=== PATIENT | female | born 1960 | race Caucasian/White ===

== ENCOUNTER 2025-09-11 08:54 | Outpatient (CLI) | payer MEDICARE, OTHER, SELFPAY ==
--- NOTE | 2025-09-11 08:56 | US_ITS ---
FINAL REPORT TECHNIQUE: Sonographic images of the right upper quadrant were obtained. CLINICAL HISTORY: RUQ PAIN FINDINGS: PANCREAS: Unremarkable. LIVER: Homogeneous. No focal hepatic lesion. No intrahepatic biliary ductal dilatation. The portal vein is normal with normal directional flow. GALLBLADDER: No gallstones. There is a very small echogenic focus in the dependent gallbladder without evidence of shadowing, could represent a polyp. No gallbladder wall thickening or pericholecystic fluid. COMMON DUCT: 4 mm. Normal for age. RIGHT KIDNEY: Incompletely evaluated. FREE FLUID: None. IMPRESSION: Very small echogenic focus in the gallbladder, could represent a polyp. Reviewed, Interpreted and Dictated by Liz Wesley MD Transcribed by Thuy Rodríguez Authenticated and [facility][1]
--- OUTSIDE RECORDS SUMMARY | 2025-09-11 08:58 | XMS_ITS | Data Portability ---
Author Organization [employer] [facility] - [facility] Address [address] [place] [address] Assessment No assessment recorded. Plan of Treatment Reminders Order Date Submit Date Provider Last Modified By Organization Details Last Modified Time Details Appointments FOLLOW UP 2025 08:00A Anat Lund PA-C Not available Not available Not available FOLLOW UP 2025 08:30A Anat Lund PA-C Not available Not available Not available Lab CBC w/ auto diff 2024 025 [facility] [address] [place], [address], 03/27/2025 08:10:35 CMP, serum or plasma 2024 025 [facility]), [address] [place], [address], 03/27/2025 08:10:36 lipid panel, serum 2024 025 [facility]), [address] [place], [address], 03/27/2025 08:10:37 vitamin D, 25-hydrox y, total, serum 2024 025 [facility]), [address] [place], [address], 03/27/2025 08:10:39 TSH + free T4, serum 2024 025 [facility] [address] [place], [address], 03/27/2025 08:10:35 ferritin, serum or plasma 2024 025 [facility] [address] [place], [address], 03/27/2025 08:10:39 iron + total iron-bind ing capacity (TIBC), serum 2024 025 [facility] [address] [place], [address], 03/27/2025 08:10:37 HbA1c (hemoglob in A1c), blood 2024 025 [facility] ([facility]), [address] [place], [address], 03/27/2025 08:10:38 cobalamin and folate panel, serum 2024 025 [facility] ([facility]), [address] [place], [address], 03/27/2025 08:10:38 CBC w/ auto diff 2023 024 [facility] ([facility]), [address] [place], [address], 06/22/2024 10:09:44 CMP, serum or plasma 2023 024 [facility] [address] [place], [address], 06/22/2024 10:09:45 iron + TIBC + ferritin, serum 2023 024 [facility] [address] [place], [address], 06/22/2024 10:09:43 lipid panel, serum 2023 024 [facility] ([facility]), [address] [facility], [place], [address], 06/22/2024 10:09:45 Referral obstetric jp and gynecolog ist referral 2024 025 VETO Henning DO, [address], [address], [place], [address], 11/12/2024 14:14:19 Procedures None recorded. Surgeries None recorded. Imaging US, abdomen, limited - RUQ [address] -New Scheduling, [address], [place], [address], 09/09/2025 08:33:54 MAMMO, screening , digital, bilateral - SAME DAY THE DEXA SCAN 2024 025 [facility], [address], [place], [address], 12/04/2024 10:28:42 DEXA, axial skeleton + vertebral fracture assessmen t - SAME DAY THE MAMMOGRAM 2024 025 [facility], [address], [place], [address], 11/21/2024 08:18:18 Medication Orders ondansetr on 8 mg disintegr ating tablet 2024 025 [id number], [address], [place], [id number], 09/03/2025 10:09:48 dicyclomi ne 20 mg tablet 2024 025 [facility][id number], [address] [place], [id number], 09/03/2025 10:10:08 triamcino lone acetonide 0.1 % topical cream [facility], [address] , [place], [place], [id number], 05/21/2025 14:57:46 Horizant ER 600 mg tablet,ex tended release 2024 025 [facility], [address] [place] [address], [place], [address], 09/03/2025 09:42:26 ropinirol e 1 mg tablet 2023 024 [facility], [address] [place] [address], [place], [address], 06/21/2024 12:19:19 Crestor 5 mg tablet 2023 024 [facility], [address] [place] [address], [place], [address], 06/21/2024 12:18:46 Patient TargetsNo targets recorded. Patient Instructions Encounter Date Encounter Id Patient Instructions Last Modified By Organization Details Last Modified Time 06/21/2024 [id number] tetanus and diphtheria booster: care instructions Not available 06/21/2024 11:17:32 high cholesterol : care instructions [email or web address] Not available 06/21/2024 11:17:32 bradycardia: car e instructions [email or web address] Not available 06/21/2024 11:27:36 09/27/2024 [id number] restless legs syndrome: care instructions [id number] Not available 09/27/2024 16:55:36 mammogram: about this test [email or web address] Not available 09/27/2024 17:00:08 learning about healthy weight [email or web address] Not available 09/27/2024 17:00:08 03/26/2025 [id number] restless legs syndrome: care instructions [id number] Not available 03/26/2025 13:35:02 high cholesterol : care instructions Not available 03/26/2025 13:35:02 bradycardia: car e instructions [email or web address] Not available 03/26/2025 13:35:02 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) [address] [place], [address], 06/22/2024 10:09:43 06/21/2006/22/2024 FE+TI BC+FE R UIBC 216 ug/dL 118-36 9 normal Not Available [facility] ([facility]) [address] [place], [address], 06/22/2024 10:09:43 06/21/2006/22/2024 FE+TI BC+FE R iron 74 ug/dL 27-139 normal Not Available [facility] ([facility]) [address] [place], [address], 06/22/2024 10:09:43 06/21/2006/22/2024 FE+TI BC+FE R iron saturation 26 % 15-55 normal Not Available [facility] ([facility]) [address] [place], [address], 06/22/2024 10:09:43 06/21/2006/22/2024 FE+TI BC+FE R ferritin 78 NG/mL 15-150 normal Not Available [facility] ([facility]) [address] [place], [address], 06/22/2024 10:09:43 06/21/2006/22/2024 CBC WITH DIFFE RENTI AL/PL ATELE T WBC 5.7 x10e3 /uL 3.4-10 .8 normal Not Available [facility] ([facility]) [address] [place], [address], 06/22/2024 10:09:44 06/21/2006/22/2024 CBC WITH DIFFE RENTI AL/PL ATELE T RBC 4.23 x10e6 /uL 3.77-5 .28 normal Not Available [facility] ([facility]) [address] [place], [address], 06/22/2024 10:09:44 06/21/2006/22/2024 CBC WITH DIFFE RENTI AL/PL ATELE T hemoglobin 13.9 g/dL 11.1-1 5.9 normal Not Available [facility] ([facility]) [address] [place], [address], 06/22/2024 10:09:44 06/21/2006/22/2024 CBC WITH DIFFE RENTI AL/PL ATELE T hematocrit 42.1 % 34.0-4 6.6 normal Not Available [facility] ([facility]) [address] [place], [address], 06/22/2024 10:09:44 06/21/2006/22/2024 CBC WITH DIFFE RENTI AL/PL ATELE T MCV 100 fL 79-97 above high normal Not Available [facility] ([facility]) [address] [place], [address], 06/22/2024 10:09:44 06/21/2006/22/2024 CBC WITH DIFFE RENTI AL/PL ATELE T MCH 32.9 pg 26.6-3 3.0 normal Not Available [facility] ([facility]) [address] [place], [address], 06/22/2024 10:09:44 06/21/2006/22/2024 CBC WITH DIFFE RENTI AL/PL ATELE T MCHC 33.0 g/dL 31.5-3 5.7 normal Not Available [facility] ([facility]) [address] [place], [address], 06/22/2024 10:09:44 06/21/20 24 06/22/2024 CBC WITH DIFFE RENTI AL/PL ATELE T RDW 12.5 % 11.7-1 5.4 Not Available [facility] ([facility]) [address] [facility], [place], [address], 06/22/2024 10:09:44 06/21/2006/22/2024 CBC WITH DIFFE RENTI AL/PL ATELE T platelets 330 x10e3 /uL 150-45 0 normal Not Available [facility] ([facility]) [address] [facility], [place], [address], 06/22/2024 10:09:44 06/21/2006/22/2024 CBC WITH DIFFE RENTI AL/PL ATELE T neutrophils 56 % not estab. normal Not Available [facility] ([facility]) [address] [facility], [place], [address], 06/22/2024 10:09:44 06/21/2006/22/2024 CBC WITH DIFFE RENTI AL/PL ATELE T lymphs 34 % not estab. normal Not Available [facility] ([facility]) [address] [facility], [place], [address], 06/22/2024 10:09:44 06/21/2006/22/2024 CBC WITH DIFFE RENTI AL/PL ATELE T monocytes 8 % not estab. normal Not Available [facility] ([facility]) [address] [facility], [place], [address], 06/22/2024 10:09:44 06/21/2006/22/2024 CBC WITH DIFFE RENTI AL/PL ATELE T eos 1 % not estab. normal Not Available [facility] ([facility]) [address] [facility], [place], [address], 06/22/2024 10:09:44 06/21/2006/22/2024 CBC WITH DIFFE RENTI AL/PL ATELE T basos 1 % not estab. normal Not Available [facility] ([facility]) [address] [facility], [place], [address], 06/22/2024 10:09:44 06/21/2006/22/2024 CBC WITH DIFFE RENTI AL/PL ATELE T immature cells TOMB MAKER HELPER Not Available [facility] ([facility]) [address] [facility], [place], [address], 06/22/2024 10:09:44 06/21/2006/22/2024 CBC WITH DIFFE RENTI AL/PL ATELE T neutrophils (absolute) 3.1 x10e3 /uL 1.4-7. 0 normal Not Available [facility] ([facility]) [address] [facility], [place], [address], 06/22/2024 10:09:44 06/21/2006/22/2024 CBC WITH DIFFE RENTI AL/PL ATELE T lymphs (absolute) 2.0 x10e3 /uL 0.7-3. 1 normal Not Available [facility] ([facility]) [address] [place], [address], 06/22/2024 10:09:44 06/21/2006/22/2024 CBC WITH DIFFE RENTI AL/PL ATELE T monocytes(ab solute) 0.5 x10e3 /uL 0.1-0. 9 normal Not Available [facility] ([facility]) [address] [place], [address], 06/22/2024 10:09:44 06/21/2006/22/2024 CBC WITH DIFFE RENTI AL/PL ATELE T eos (absolute) 0.1 x10e3 /uL 0.0-0. 4 normal Not Available [facility] ([facility]) [address] [place], [address], 06/22/2024 10:09:44 06/21/20 24 06/22/2024 CBC WITH DIFFE RENTI AL/PL ATELE T baso (absolute) 0.1 x10e3 /uL 0.0-0. 2 normal Not Available [facility] ([facility]) [address] [facility], [place], [address], 06/22/2024 10:09:44 06/21/2006/22/2024 CBC WITH DIFFE RENTI AL/PL ATELE T immature granulocytes 0 % not estab. Not Available [facility] ([facility]) [address] [facility], [place], [address], 06/22/2024 10:09:44 06/21/2006/22/2024 CBC WITH DIFFE RENTI AL/PL ATELE T immature grans (abs) 0.0 x10e3 /uL 0.0-0. 1 Not Available [facility] ([facility]) [address] [facility], [place], [address], 06/22/2024 10:09:44 06/21/2006/22/2024 CBC WITH DIFFE RENTI AL/PL ATELE T NRBC TOMB MAKER HELPER Not Available [facility] ([facility]) [address] [facility], [place], [address], 06/22/2024 10:09:44 06/21/2006/22/2024 CBC WITH DIFFE RENTI AL/PL ATELE T hematology comments: TOMB MAKER HELPER Not Available [facility] ([facility]) [address] [facility], [place], [address], 06/22/2024 10:09:44 06/21/2006/22/2024 COMP. METAB OLIC PANEL (14) glucose 90 mg/dL 70-99 normal Not Available [facility] ([facility]) [address] [facility], [place], [address], 06/22/2024 10:09:45 06/21/2006/22/2024 COMP. METAB OLIC PANEL (14) BUN 17 mg/dL 8-27 normal Not Available [facility] ([facility]) [address] [facility] [place], [address], 06/22/2024 10:09:45 06/21/20 24 06/22/2024 COMP. METAB OLIC PANEL (14) creatinine 0.71 mg/dL 0.57-1 .00 normal Not Available [facility] ([facility]) [address] [facility] [place], [address], 06/22/2024 10:09:45 06/21/20 24 06/22/2024 COMP. METAB OLIC PANEL (14) eGFR 94 mL/mi n/1.7 3 >59 normal Not Available [facility] ([facility]) [address] [facility], [place], [address], 06/22/2024 10:09:45 06/21/20 24 06/22/2024 COMP. METAB OLIC PANEL (14) BUN/creatini ne ratio 24 12-28 normal Not Available [facility] ([facility]) [address] [facility] [place], [address], 06/22/2024 10:09:45 06/21/20 24 06/22/2024 COMP. METAB OLIC PANEL (14) sodium 139 mmol/ L 134-14 4 normal Not Available [facility] ([facility]) [address] [facility] [place], [address], 06/22/2024 10:09:45 06/21/20 24 06/22/2024 COMP. METAB OLIC PANEL (14) potassium 4.7 mmol/ L 3.5-5. 2 normal Not Available [facility] ([facility]) [address] [facility] [place], [address], 06/22/2024 10:09:45 06/21/20 24 06/22/2024 COMP. METAB OLIC PANEL (14) chloride 101 mmol/ L 96-106 normal Not Available [facility] ([facility]) [address], [place], [address], 06/22/2024 10:09:45 06/21/2006/22/2024 COMP. METAB OLIC PANEL (14) carbon dioxide, total 23 mmol/ L 20-29 normal Not Available [facility] ([facility]) [address], [place], [address], 06/22/2024 10:09:45 06/21/20 24 06/22/2024 COMP. METAB OLIC PANEL (14) calcium 9.4 mg/dL 8.7-10 .3 normal Not Available [facility] ([facility]) [address] [place], [address], 06/22/2024 10:09:45 06/21/20 24 06/22/2024 COMP. METAB OLIC PANEL (14) protein, total 7.3 g/dL 6.0-8. 5 normal Not Available [facility] ([facility]) [address], [place], [address], 06/22/2024 10:09:45 06/21/2006/22/2024 COMP. METAB OLIC PANEL (14) albumin 4.7 g/dL 3.9-4. 9 normal Not Available [facility] ([facility]) [address] [place], [address], 06/22/2024 10:09:45 06/21/2006/22/2024 COMP. METAB OLIC PANEL (14) globulin, total 2.6 g/dL 1.5-4. 5 Not Available [facility] ([facility] [address] [facility] [place], [address], 06/22/2024 10:09:45 06/21/20 24 06/22/2024 COMP. METAB OLIC PANEL (14) bilirubin, total 0.3 mg/dL 0.0-1. 2 normal Not Available [facility] ([facility]) [address] [facility], [place], [address], 06/22/2024 10:09:45 06/21/2006/22/2024 COMP. METAB OLIC PANEL (14) alkaline phosphatase 78 IU/L 44-121 normal Not Available [facility] ([facility]) [address] [facility] [place], [address], 06/22/2024 10:09:45 06/21/20 24 06/22/2024 COMP. METAB OLIC PANEL (14) AST (SGOT) 17 IU/L 0-40 normal Not Available [facility] ([facility]) [address] [facility] [place], [address], 06/22/2024 10:09:45 06/21/20 24 06/22/2024 COMP. METAB OLIC PANEL (14) ALT (SGPT) 17 IU/L 0-32 normal Not Available [facility] ([facility]) [address] [facility], [place], [address], 06/22/2024 10:09:45 06/21/20 24 06/22/2024 LIPID PANEL cholesterol, total 183 mg/dL 100-19 9 normal Not Available [facility] ([facility]) [address] [facility], [place], [address], 06/22/2024 10:09:45 06/21/2006/22/2024 LIPID PANEL triglyceride s 60 mg/dL 0-149 normal Not Available [facility] ([facility]) [address] [facility] [place], [address], 06/22/2024 10:09:45 06/21/2006/22/2024 LIPID PANEL HDL cholesterol 88 mg/dL >39 normal Not Available [facility]) [address] [facility] [place], [address], 06/22/2024 10:09:45 06/21/20 24 06/22/2024 LIPID PANEL VLDL cholesterol val 11 mg/dL 5-40 Not Available [facility] ([facility]) [address] [facility] [place], [address], 06/22/2024 10:09:45 06/21/20 24 06/22/2024 LIPID PANEL LDL chol calc ([facility]) 84 mg/dL 0-99 Not Available [facility] ([facility]) [address] [facility] [place], [address], 06/22/2024 10:09:45 06/21/20 24 06/22/2024 LIPID PANEL LDL calc comment: TOMB MAKER HELPER Not Available [facility] ([facility]) [address] [facility] [place], [address], 06/22/2024 10:09:45 06/21/2006/22/2024 DICK E NOTE please note COMMEN T The date and/o r time of colle ction was not indic ated on the requi sitio n as requi red by state and justo al law. The date of recei pt of the speci men was used as the colle ction date if not suppl ied. Not Available [facility] ([facility]) [address] [facility], [place], [address], 06/22/2024 10:09:46 03/26/2003/27/2025 TSH+F REE T4 TSH 2.090 uIU/m L 0.450- 4.500 normal Not Available [facility] ([facility]) [address] [place], [address], 03/27/2025 08:10:35 03/26/2003/27/2025 TSH+F REE T4 T4,free(dire ct) 1.21 NG/dL 0.82-1 .77 normal Not Available [facility] ([facility]) [address] [place], [address], 03/27/2025 08:10:35 03/26/2003/27/2025 CBC WITH DIFFE RENTI AL/PL ATELE T WBC 5.0 x10e3 /uL 3.4-10 .8 normal Not Available [facility] ([facility]) [address] [place], [address], 03/27/2025 08:10:35 03/26/2003/27/2025 CBC WITH DIFFE RENTI AL/PL ATELE T RBC 4.34 x10e6 /uL 3.77-5 .28 normal Not Available [facility] ([facility]) [address] [place], [address], 03/27/2025 08:10:35 03/26/2003/27/2025 CBC WITH DIFFE RENTI AL/PL ATELE T hemoglobin 13.6 g/dL 11.1-1 5.9 normal Not Available [facility] ([facility]) [address] [place], [address], 03/27/2025 08:10:35 03/26/2003/27/2025 CBC WITH DIFFE RENTI AL/PL ATELE T hematocrit 44.1 % 34.0-4 6.6 normal Not Available [facility] ([facility]) [address] [place], [address], 03/27/2025 08:10:35 03/26/2003/27/2025 CBC WITH DIFFE RENTI AL/PL ATELE T MCV 102 fL 79-97 above high normal Not Available [facility] ([facility]) [address] [place], [address], 03/27/2025 08:10:35 03/26/2003/27/2025 CBC WITH DIFFE RENTI AL/PL ATELE T MCH 31.3 pg 26.6-3 3.0 normal Not Available [facility] ([facility]) [address] [place], [address], 03/27/2025 08:10:35 03/26/2003/27/2025 CBC WITH DIFFE RENTI AL/PL ATELE T MCHC 30.8 g/dL 31.5-3 5.7 below low normal Not Available [facility] ([facility]) [address] [facility], [place], [address], 03/27/2025 08:10:35 03/26/20 25 03/27/2025 CBC WITH DIFFE RENTI AL/PL ATELE T RDW 12.2 % 11.7-1 5.4 Not Available [facility] ([facility]) [address] [facility], [place], [address], 03/27/2025 08:10:35 03/26/2003/27/2025 CBC WITH DIFFE RENTI AL/PL ATELE T platelets 323 x10e3 /uL 150-45 0 normal Not Available [facility] ([facility]) [address] [facility], [place], [address], 03/27/2025 08:10:35 03/26/20 25 03/27/2025 CBC WITH DIFFE RENTI AL/PL ATELE T neutrophils 50 % not estab. normal Not Available [facility] ([facility]) [address] [facility], [place], [address], 03/27/2025 08:10:35 03/26/20 25 03/27/2025 CBC WITH DIFFE RENTI AL/PL ATELE T lymphs 40 % not estab. normal Not Available [facility] ([facility]) [address] [facility], [place], [address], 03/27/2025 08:10:35 03/26/20 25 03/27/2025 CBC WITH DIFFE RENTI AL/PL ATELE T monocytes 7 % not estab. normal Not Available [facility] ([facility]) [address] [facility], [place], [address], 03/27/2025 08:10:35 03/26/20 25 03/27/2025 CBC WITH DIFFE RENTI AL/PL ATELE T eos 2 % not estab. normal Not Available [facility] ([facility]) [address] [facility], [place], [address], 03/27/2025 08:10:35 03/26/20 25 03/27/2025 CBC WITH DIFFE RENTI AL/PL ATELE T basos 1 % not estab. normal Not Available [facility] ([facility]) [address] [facility], [place], [address], 03/27/2025 08:10:35 03/26/20 25 03/27/2025 CBC WITH DIFFE RENTI AL/PL ATELE T immature cells TOMB MAKER HELPER Not Available [facility] ([facility]) [address] [facility], [place], [address], 03/27/2025 08:10:35 03/26/20 25 03/27/2025 CBC WITH DIFFE RENTI AL/PL ATELE T neutrophils (absolute) 2.5 x10e3 /uL 1.4-7. 0 normal Not Available [facility] ([facility]) [address] [place], [address], 03/27/2025 08:10:35 03/26/20 25 03/27/2025 CBC WITH DIFFE RENTI AL/PL ATELE T lymphs (absolute) 2.0 x10e3 /uL 0.7-3. 1 normal Not Available [facility] ([facility]) [address] [place], [address], 03/27/2025 08:10:35 03/26/20 25 03/27/2025 CBC WITH DIFFE RENTI AL/PL ATELE T monocytes(ab solute) 0.4 x10e3 /uL 0.1-0. 9 normal Not Available [facility] ([facility]) [address] [place], [address], 03/27/2025 08:10:35 03/26/20 25 03/27/2025 CBC WITH DIFFE RENTI AL/PL ATELE T eos (absolute) 0.1 x10e3 /uL 0.0-0. 4 normal Not Available [facility] ([facility]) [address] [facility], [place], [address], 03/27/2025 08:10:35 03/26/20 25 03/27/2025 CBC WITH DIFFE RENTI AL/PL ATELE T baso (absolute) 0.1 x10e3 /uL 0.0-0. 2 normal Not Available [facility] ([facility]) [address] [facility], [place], [address], 03/27/2025 08:10:35 03/26/2003/27/2025 CBC WITH DIFFE RENTI AL/PL ATELE T immature granulocytes 0 % not estab. Not Available [facility] ([facility]) [address] [place], [address], 03/27/2025 08:10:35 03/26/20 25 03/27/2025 CBC WITH DIFFE RENTI AL/PL ATELE T immature grans (abs) 0.0 x10e3 /uL 0.0-0. 1 Not Available [facility] ([facility]) [address] [place], [address], 03/27/2025 08:10:35 03/26/20 25 03/27/2025 CBC WITH DIFFE RENTI AL/PL ATELE T NRBC TOMB MAKER HELPER Not Available [facility] ([facility]) [address] [place], [address], 03/27/2025 08:10:35 03/26/20 25 03/27/2025 CBC WITH DIFFE RENTI AL/PL ATELE T hematology comments: TOMB MAKER HELPER Not Available [facility] ([facility]) [address] [place], [address], 03/27/2025 08:10:35 03/26/20 25 03/27/2025 COMP. METAB OLIC PANEL (14) glucose 100 mg/dL 70-99 above high normal Not Available [facility] ([facility]) [address] [place], [address], 03/27/2025 08:10:36 03/26/20 25 03/27/2025 COMP. METAB OLIC PANEL (14) BUN 15 mg/dL 8-27 normal Not Available [facility] ([facility]) [address] [place], [address], 03/27/2025 08:10:36 03/26/20 25 03/27/2025 COMP. METAB OLIC PANEL (14) creatinine 0.65 mg/dL 0.57-1 .00 normal Not Available [facility] ([facility]) [address] [place], [address], 03/27/2025 08:10:36 03/26/20 25 03/27/2025 COMP. METAB OLIC PANEL (14) eGFR 97 mL/mi n/1.7 3 >59 normal Not Available [facility] ([facility]) [address] [place], [address], 03/27/2025 08:10:36 03/26/20 25 03/27/2025 COMP. METAB OLIC PANEL (14) BUN/creatini ne ratio 23 12-28 normal Not Available [facility] ([facility]) [address] [place], [address], 03/27/2025 08:10:36 03/26/20 25 03/27/2025 COMP. METAB OLIC PANEL (14) sodium 141 mmol/ L 134-14 4 normal Not Available [facility] ([facility]) [address] [place], [address], 03/27/2025 08:10:36 03/26/20 25 03/27/2025 COMP. METAB OLIC PANEL (14) potassium 4.9 mmol/ L 3.5-5. 2 normal Not Available [facility] ([facility]) [address] [facility] [place], [address], 03/27/2025 08:10:36 03/26/20 25 03/27/2025 COMP. METAB OLIC PANEL (14) chloride 105 mmol/ L 96-106 normal Not Available [facility] ([facility]) [address] [place], [address], 03/27/2025 08:10:36 03/26/20 25 03/27/2025 COMP. METAB OLIC PANEL (14) carbon dioxide, total 19 mmol/ L 20-29 below low normal Not Available [facility] ([facility]) [address] [place], [address], 03/27/2025 08:10:36 03/26/20 25 03/27/2025 COMP. METAB OLIC PANEL (14) calcium 9.6 mg/dL 8.7-10 .3 normal Not Available [facility] ([facility]) [address] [place], [address], 03/27/2025 08:10:36 03/26/20 25 03/27/2025 COMP. METAB OLIC PANEL (14) protein, total 7.3 g/dL 6.0-8. 5 normal Not Available [facility] ([facility]) [address] [place], [address], 03/27/2025 08:10:36 03/26/20 25 03/27/2025 COMP. METAB OLIC PANEL (14) albumin 4.6 g/dL 3.9-4. 9 normal Not Available [facility] ([facility]) [address] [place], [address], 03/27/2025 08:10:36 03/26/20 25 03/27/2025 COMP. METAB OLIC PANEL (14) globulin, total 2.7 g/dL 1.5-4. 5 Not Available [facility] ([facility]) [address] [place], [address], 03/27/2025 08:10:36 03/26/20 25 03/27/2025 COMP. METAB OLIC PANEL (14) bilirubin, total 0.4 mg/dL 0.0-1. 2 normal Not Available [facility] ([facility]) [address] [facility] [place], [address], 03/27/2025 08:10:36 03/26/20 25 03/27/2025 COMP. METAB OLIC PANEL (14) alkaline phosphatase 58 IU/L 44-121 normal Not Available [facility] ([facility]) [address] [facility] [place], [address], 03/27/2025 08:10:36 03/26/20 25 03/27/2025 COMP. METAB OLIC PANEL (14) AST (SGOT) 19 IU/L 0-40 normal Not Available [facility] ([facility]) [address] [place], [address], 03/27/2025 08:10:36 03/26/20 25 03/27/2025 COMP. METAB OLIC PANEL (14) ALT (SGPT) 22 IU/L 0-32 normal Not Available [facility] ([facility]) [address] [place], [address], 03/27/2025 08:10:36 03/26/20 25 03/27/2025 LIPID PANEL cholesterol, total 160 mg/dL 100-19 9 normal Not Available [facility] ([facility]) [address] [place], [address], 03/27/2025 08:10:37 03/26/20 25 03/27/2025 LIPID PANEL triglyceride s 58 mg/dL 0-149 normal Not Available [facility] ([facility]) [address] [place], [address], 03/27/2025 08:10:37 03/26/20 25 03/27/2025 LIPID PANEL HDL cholesterol 75 mg/dL >39 normal Not Available [facility] ([facility]) [address] [place], [address], 03/27/2025 08:10:37 03/26/20 25 03/27/2025 LIPID PANEL VLDL cholesterol val 12 mg/dL 5-40 Not Available [facility] ([facility]) [address] [place], [address], 03/27/2025 08:10:37 03/26/20 25 03/27/2025 LIPID PANEL LDL chol calc ([facility]) 73 mg/dL 0-99 Not Available [facility] ([facility]) [address] [place], [address], 03/27/2025 08:10:37 03/26/20 25 03/27/2025 LIPID PANEL LDL calc comment: TOMB [employer] Not Available [facility] ([facility]) [address] [facility], [place], [address], 03/27/2025 08:10:37 03/26/20 25 03/27/2025 IRON AND TIBC iron bind.cap.(TI BC) 268 ug/dL 250-45 0 normal Not Available [facility] ([facility]) [address] [facility], [place], [address], 03/27/2025 08:10:37 03/26/20 25 03/27/2025 IRON AND TIBC UIBC 186 ug/dL 118-36 9 normal Not Available [facility] ([facility]) [address] [place], [address], 03/27/2025 08:10:37 03/26/20 25 03/27/2025 IRON AND TIBC iron 82 ug/dL 27-139 normal Not Available [facility] ([facility]) [address] [place], [address], 03/27/2025 08:10:37 03/26/20 25 03/27/2025 IRON AND TIBC iron saturation 31 % 15-55 normal Not Available [facility] ([facility]) [address] [facility], [place], [address], 03/27/2025 08:10:37 03/26/2003/27/2025 VITAM IN B12 AND FOLAT E vitamin B12 401 pg/mL 232-12 45 normal Not Available [facility] ([facility]) [address] [facility], [place], [address], 03/27/2025 08:10:38 03/26/2003/27/2025 VITAM IN B12 AND FOLAT E folate (folic acid), serum 12.6 NG/mL >3.0 normal A serum folat e ismael ntrat ion of less than 3.1 ng/mL is consi dered to repre sent clini val defic iency . Not Available [facility] ([facility]) [address] [facility], [place], [address], 03/27/2025 08:10:38 03/26/2003/27/2025 HEMOG LOBIN A1C hemoglobin A1C 5.9 % 4.8-5. 6 above high normal Predi abete s: 5.7 - 6.4 Diabe emily: >6.4 Glyce chuck contr ol for adult s with diabe emily: <7.0 Not Available [facility] ([facility]) [address] [place], [address], 03/27/2025 08:10:38 03/26/2003/27/2025 VITAM IN D, 25-HY DROXY vitamin D, 25-hydroxy 43.9 NG/mL 30.0-1 00.0 Vitam in D defic iency has been defin ed by the Insti tute of Medic ine and an Endoc rine Socie ty pract ice guide line as a level of serum 25-OH vitam in D less than 20 ng/mL (1,2) . The Endoc rine Socie ty went on to furth er defin e vitam in D insuf ficie ncy as a level betwe en and 29 ng/mL (2). 1. IOM (Inst itute of Medic ine). 2010. Dieta ry refer ence kirk es for calci um and D. Kait [place]: The [facility] . 2. Holic k MF, Binkl ey [place], Bisch off-F errar i BAIRD, et al. Evalu ation , treat ment, and preve ntion of vitam in D defic iency : an Endoc rine Socie ty clini val pract ice guide line. JCEM. 2010; 96(7) :1911 -30. Not Available [facility] ([facility]) [address] [facility], [place], [address], 03/27/2025 08:10:39 03/26/20 25 03/27/2025 GENO TIN ferritin 105 NG/mL 15-150 normal Not Available [facility] ([facility]) [address] [facility], [place], [address], 03/27/2025 08:10:39 11/22/19 25 11/20/2024 DEXA, axial skele ton + verte bral fract ure asses sment No observ ation record ed. [email or web address] [facility] (Radiology) [address] [place] [address] , [place], [address], 11/22/2024 09:53:07 12/05/19 25 11/20/2024 MAMMO , scree patricio, digit al, bilat eral No observ ation record ed. [facility] (Radiology) [address] , [place], [address], 12/04/2024 12:01:59 Result Notes None recorded. Problems Name Problem SNOMED Code Status Onset Date Resolution Date Notes Provider Name and Address Organization Details Recorded Time Restless legs syndrome 54037470 Active 2023 GISSELLE Ferrell [address] [place] [address], [phone], [facility] [employer] 4 11:12:57 Hyperlipidemia 83423238 Active 2023 Génesis GISSELLE Lund [address] [place] [address], [address], [employer] 4 13:34:28 Bradycardia 14105226 Active 2023 Génesis Lund GISSELLE [address] [place] [address], [address] 8, [employer] 4 13:34:21 Osteopenia 937236638 Active 2024 GISSELLE Ferrell [address] [place] [address], [address] 8, [employer] 5 13:33:27 Chronic low back pain 509265621 Active 2024 GISSELLE Ferrell [address] [place] [address], [address] 8, [employer] 5 08:45:35 Generalized osteoarthritis 482762847 Active 2024 GISSELLE Ferrell [address] [place] [address], [address] 8, [employer] 5 08:45:53 Nummular eczema 20578777 Active 2024 GISSELLE Ferrell [address] [place] [address], [address] 8, [employer] 5 14:56:59 Gastroesophage al reflux disease without esophagitis 799076498 Active 2024 GISSELLE Ferrell [address] [place] [address], [address] 8, [employer] 5 10:11:13 Right upper quadrant pain 872266386 Active 2024 GISSELLE Ferrell [address] [place] [address], [address] 8, [employer] 5 10:07:38 Problem Notes None recorded. Procedures Surgical History Date Name Laterality Status Provider Name and Address Organization Details Recorded Time 11/21/19 Most Recent Mammogram completed [facility] [employer] 03/12/2025 17:19:46 11/05/19 25 Date of Last Pap Smear completed [employer] 11/12/2024 16:36:18 06/29/20 22 Back Surgery completed [employer] 06/21/2024 10:48:24 11/12/18 64 Tonsillectomy completed [employer] 06/21/2024 10:48:24 Imaging Results None recorded. Procedure Notes None recorded. Medical Equipment None Reported. Allergies Allergen ID Allergen Name Allergen Category Reaction Reaction Severity Criticality Documentation Date Start Date Code Code System Note Provider Name and Address Organization Details Recorded Time 08972 Substance with sulfonami de structure and antibacte rial mechanism of action (substanc e) medicatio n rash moderate Not available 06/21/2024 08110 8003 SNOMED [employer]. 4 10:48:22 21856 shrimp allergeni c extract food nausea moderate Not available 06/21/20242022 09692 2 [employer] 4 10:48:22 46048 scallop allergeni c extract food nausea moderate Not available 06/21/2024 54824 6 [employer]. 4 10:48:22 Medications Name Sig Start Date Stop Date Status Note LastModified by Organization Details LastModified Time doxycycline hyclate 100 mg capsule 09/27 completed Not Available Not Available Not Available ropinirole 1 mg tablet Take 1.5 tablets every day by oral route at bedtime for 90 days, for RLS. 2024 active Not Available Not Available Not Avai lable valacyclovi r 500 mg tablet 1 tablet every day by oral route. active Not Available Not Available No t Available omeprazole 40 mg capsule,del ayed release Take 1 capsule every day by oral route for 90 days. 08/26 completed Not Available Not Available Not Available aspirin 81 mg tablet,petra yed release Take 1 tablet every day by oral route. active Not Available Not Available No t Available triamcinolo ne acetonide 0.1 % topical cream APPLY THIN LAYER TOPICALLY TO THE AFFECTED AREA TWICE DAILY active Not Available Not Available No t Available ondansetron 8 mg disintegrat ing tablet DISSOLVE 1 TABLET ON THE TONGUE THREE TIMES DAILY FOR 10 DAYS active Not Available Not Available No t Available Nexium 20 mg capsule,del ayed release Take 1 capsule every day by oral route for 90 days. 2024 active Not Available Not Available Not Avai lable Fosamax 70 mg tablet Take 1 tablet every week by oral route as directed for 90 days, for osteopeni a. 2024 active Not Available Not Available Not Avai lable dicyclomine 20 mg tablet TAKE 1 TABLET BY MOUTH FOUR TIMES DAILY NEEDED active Not Available Not Available No t Available fluticasone propionate 50 mcg/actuati on nasal spray,suspe nsion active Not Available Not Available Not Available Crestor 5 mg tablet Take 5 mg every day by oral route at bedtime for 90 days, for high cholester ol. 2024 active Not Available Not Available Not Avai lable Calcium 600 + D(3) 600 mg-5 mcg (200 unit) tablet Take 1 tablet every day by oral route for 90 days. 2024 active Not Available Not Available Not Avai lable Horizant ER 600 mg tablet,exte nded release Take 1 tablet every day by oral route at dinner for 90 days, for restless legs. 09/03 completed does not take this Not Available Not Available Not Available Vitals Date Recorded Body height Body mass index (BMI) Body weight Oxygen saturation Heart rate Body temperature Systolic And Diastolic Provider Name and Address Organization Details Last Updated DateTime 5 176.53 cm 25.7 kg/m2 21833.1 3 g 98 % 58 /min 97.8 [degF] 132/68 mm[Hg] [facility] [employer] 5 16:33:21 Date Recorded Body height Body mass index (BMI) Body weight Body temperature Oxygen saturation Heart rate Systolic And Diastolic Provider Name and Address Organization Details Last Updated DateTime 5 176.53 cm 25.1 kg/m2 33938.5 9 g 98.1 [degF] 97 % 60 /min 126/71 mm[Hg] [employer] 5 07:58:58 Date Recorded Body height Body mass index (BMI) Body weight Heart rate Oxygen saturation Systolic And Diastolic Provider Name and Address Organization Details Last Updated DateTime 5 176.53 cm 25.6 kg/m2 54769.2 6 g 60 /min 96 % 109/72 mm[Hg] [employer] 5 14:34:24 Date Recorded Body weight Body mass index (BMI) Body height Oxygen saturation Heart rate Systolic And Diastolic Provider Name and Address Organization Details Last Updated DateTime 4 86405.7 2 g 25.9 kg/m2 176.53 cm 96 % 54 /min 133/80 mm[Hg] [employer] 4 10:47:30 Date Recorded Body height Body mass index (BMI) Body weight Body temperature Heart rate Oxygen saturation Systolic And Diastolic Provider Name and Address Organization Details Last Updated DateTime 5 176.53 cm 25.3 kg/m2 08645.6 4 g 98 [degF] 58 /min 97 % 128/76 mm[Hg] [employer] 5 09:44:11 Social History Question Answer Notes LastModified by Organizat ion Details LastModified Time Tobacco Smoking Status Never Smoker [employer] 06/21/2024 10:48:24 Do You Have An Advance Directive? Yes Information not available 06/21/2024 Is Your Home Air Conditioned? Yes Information not available 06/21/2024 How Many Years Have You Consumed Alcohol? 30 Information not available 06/21/2024 Are You Blind Or Do You Have Difficulty Seeing? No Information not available 06/21/2024 What Is Your Level Of Caffeine Consumption? None Information not available 09/03/2025 Are You A Caregiver? No Information not available 06/21/2024 What Type Of Hand Trucker Do You Use? None Information not available 06/21/2024 In The 14 Days Before Symptom Onset, Have You Had Close Contact With A Laboratory-confi rmed COVID-19 While That Case Was Ill? No Information not available 06/21/2024 In The 14 Days Before Symptom Onset, Have You Had Close Contact With A Person Who Is Under Investigation For COVID-19 While That Person Was Ill? No Information not available 06/21/2024 Have You Been To An Area Known To Be High Risk For COVID-19? No Information not available 06/21/2024 Are You Deaf Or Do You Have Serious Difficulty Hearing? No Information not available 06/21/2024 What Type Of Diet Are You Following? REGULAR Information not available 06/21/2024 What Is The Highest Grade Or Level Of School You Have Completed Or The Highest Degree You Have Received? [id number] Information not available 06/21/2024 Who Is Your Employer? Retired Information not available 06/21/2024 How Many Days Of Moderate To Strenuous Exercise, Like A Brisk Walk, Did You Do In The Last 7 Days? 5 Information not available 09/03/2025 On Those Days That You Engage In Moderate To Strenuous Exercise, How Many Minutes, On Average, Do You Exercise? 30 Information not available 09/03/2025 How Many Times Per Week Do You Exercise? 5-7 Times Per Week Information n ot available 06/21/2024 Have There Been Any Changes To Your Family Or Social Situation? No Information not available 06/21/2024 How Are Your Grades? Excellent Information not available 06/21/2024 Are There Any Guns Present In Your Home? Yes Information not available 06/21/2024 Which Of Your Hands Is Dominant? Left Information not available 06/21/2024 Do You Engage In Moderate/heavy Exercise (e.g. Brisk Walk, Jogging, Strength Training, Etc)? Yes Information not available 09/03/2025 What Is Your Home Situation? Other Information not available 06/21/2024 How Many Times In The Past Year Have You Used An Illegal Drug Or Used A Prescription Medication For Nonmedical Reasons? 0 Information not available 06/21/2024 How Many Years Have You Used Illicit Or Recreational Drugs? 0 Information not available 06/21/2024 Where [facility] You Live? 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 09/03/2025 Information not available 09/03/2025 Are There Any Occupational Health Risks Where You Work? No Information not available 06/21/2024 Have You Ever Been Counseled For Unhealthy Alcohol Use? No Information not available 06/21/2024 Do You Have Any Pets? No Information not available 06/21/2024 What Is Your Relationship Status? Information not available 06/21/2024 Have You Repeated Any Grades? No Information not available 06/21/2024 Do You Wear A Seatbelt When Driving Or As A Passenger? Yes Information not available 09/03/2025 Do You Use Your Seat Belt Or Car Seat Routinely? Yes Information not available 06/21/2024 Are You Sexually Active? No Information not available 06/21/2024 Do You Have Any Siblings? Yes Information not available 06/21/2024 Do You Have Smoke And Carbon Monoxide Detectors In Your Home? Yes Information not available 06/21/2024 Are You Passively Exposed To Smoke? No Information not available 06/21/2024 Are There Any Smokers In Your House? No Information not available 06/21/2024 How Much Tobacco Do You Smoke? No Information not available 06/21/2024 Do You Participate In Social Media? No Information not available 06/21/2024 What Types Of Sporting Activities Do You Participate In? Gardening Information not available 06/21/2024 Do You Use Sunscreen Routinely? Yes Information not available 06/21/2024 Has Tobacco Cessation Counseling Been Provided? No Information not available 06/21/2024 How Many Years Have You Smoked Tobacco? 0 Information not available 06/21/2024 Have You Recently Traveled Abroad? No Information not available 09/03/2025 Have You Used IV Drugs? No Information not available 06/21/2024 Do You Have Difficulty Walking Or Climbing Stairs? No Information not available 06/21/2024 Are You Currently In School? No Information not available 06/21/2024 What Contraceptive Method Was Reported At Start Of This Visit? None Information not available 09/03/2025 Do You Feel Safe In Your Home? Yes Information not available 09/03/2025 Do You Have Any Dietary Restrictions? No Information not available 06/21/2024 How Many Days In The Past Year Have You Consumed 4 Or More Drinks? 0 Information not available 06/21/2024 How Many Days In The Past Year Have You Consumed 5 Or More Drinks? 0 Information not available 06/21/2024 What Is Your Reason For Having No Contraceptive Method At Start Of This Visit? Abstinence Information not available 09/03/2025 Sex: Female Functional Status Question Answer Note LastModified by Organizat ion Details LastModified Time How many times per week do you consume alcohol? 5-7 times per week Information not available 06/21/2024 Do you or have you ever used smokeless tobacco? Never used smokeless tobacco Information not available 06/21/2024 Are you currently employed? No Information not available 06/21/2024 Do you have transportation difficulties? No Information not available 06/21/2024 Are you able to care for yourself independently? Yes Information not available 06/21/2024 Do you have difficulty dressing, bathing, grooming, or toileting? No Information not available 06/21/2024 Do you or have you ever used e-cigarettes or vape? Never used electronic cigarettes Information not available 06/21/2024 What is your exercise level? Moderate Information not available 06/21/2024 Do you use any illicit or recreational drugs? No Information not available 06/21/2024 Do you feel safe in your relationship? Yes Information not available 09/03/2025 Do you or have you ever used any other forms of tobacco or nicotine? No Information not available 06/21/2024 What is your level of alcohol consumption? Moderate Information not available 06/21/2024 Are you able to walk independently without assistance or assistive devices? [employer] Information not available 06/21/2024 Do you have difficulty doing errands alone? No Information not available 06/21/2024 What is your occupation? Retired Information not available 06/21/2024 Mental Status Question Answer Note LastModified by Organizat ion Details LastModified Time Do you feel stressed (tense, restless, nervous, or anxious, or unable to sleep at night)? [id number] Information not available 09/03/2025 Do you have difficulty concentrating, remembering or making decisions? No Information no t available 06/21/2024 Are you or have you been involved with bullying? No Information not available 06/21/2024 Family History Relationship Description Onset Age of this Age Resolved Age Notes LastModified by Organization Details LastModified Time Paternal Grandmother Alzheimer's disease Not available 2023 10:48:23 Mother Arthritis Not available 06/21/2024 10:48:23 Mother Heart disease Not available 2023 10:48:23 Mother Osteoporosis Not availab le 06/21/2024 10:48:23 Brother Hypercholest erolemia Not available 2023 10:48:23 Brother Arthritis Not available 06/21/2024 10:48:23 Sister Hypercholest erolemia Not available 2023 10:48:23 Sister Arthritis Not available 06/21/2024 10:48:23 Sister Osteoporosis Not availab le 06/21/2024 10:48:23 Father Hypertensive disorder Not available 2023 10:48:23 Medical History Condition Response Allergies (Food, seasonal, environmental ) Y Coronary Artery Disease N Other N Blood Diseases N Breast Cancer N Blood Transfusion N Emergency room visit since last appointm ent. N Lung Disease N Depression N COPD N Dermatologic Disorders N Defects or Inherited Disease N Developmental or Behavioral Disorders N Breast Problem N Difficulty Swallowing N Meniere's disease N Muscle, Joint, or Bone Problems N Vision or Eye Problems N Arthritis Y Polyps N Mental Disorder N Congenital Anomalies N Acid Reflux (GERD) Y Cancer Y Stroke N Neurologic/Epilepsy N Endometriosis N Bladder or Kidney Problems N High Cholesterol Y Liver Disease N Organ Transplant N Psychiatric/Mental Health Condition N Schizophrenia N Dialysis N Ear or Hearing Problems N Hospitalizations N Learning Disorder N Thyroid Problems N Eating Disorder N Constipation N Mental Illness N Diabetes N Ovarian Cancer N Tuberculosis N Eczema N Diverticulitis N Trauma/Violence N Substance Abuse N Reflux/GERD N Depression/ depression N Pulmonary Embolism N Tourette Syndrome N Chronic Ear Infections N Pre-Eclampsia N Chicken Pox N Osteoporosis Y Thrombophilias N Gynecological History Statement/Question Response If Post Menopausal, Age at Menopause 49 Abnormal Pap N Menses Monthly N HPV Vaccine N Date of Last Pap Smear 11/05/2024 Current Control Method Abstinence Age at Menarche 9 Most Recent Mammogram 11/20/2024 LMP Unknown Age at First Child 32 Obstetrics History GPAL:G 0 P 0 0 0 0 Immunizations Vaccine Type Date Status Note Provider Nam e and Address Organization Details Recorded Time Tdap 4 completed GISSELLE Ferrell [address] [place] [address], [phone], [facility] [employer] 06/21/2024 12:00:30 Pneumococcal conjugate PCV15, polysaccharide UXY872 conjugate, adjuvant, PF 4 completed GISSELLE Ferrell [address] [place] [address], [phone], [facility] [employer] 06/21/2024 12:00:30 Influenza, high-dose, trivalent, PF 4 completed Cece almaguer, [facility] [employer] 09/27/2024 16:26:57 COVID-19, mRNA, LNP-S, PF, 50 mcg/0.5 mL 5 completed Not Available [facility] 09/03/2025 09:27:52 Influenza, MDCK, trivalent, PF 5 completed Not Available [facility] 09/03/2025 09:27:52 Past Encounters Encounter ID Performer Location Encounter Start Date Encounter Closed Date Diagnosis/Indication Diagnosis SNOMED-CT Code Diagnosis ICD10 Code Diagnosis IMO Codes Diagnosis Note [id number] GISSELLE Ferrell [address] [place] [address] 06/21/2024 10:39:41 06/21/2024 13:58:39 Restless legs syndrome 47879502 G25.81 Hyperlipidemia 74668266 E78.5 Administra tion of pneumococcal vaccine 86394517 Z23 Administra tion of diphtheria, pertussis, and tetanus vaccine 479477949 Z23 Bradycardia 20492684 R00 .1 [id number] GISSELLE Ferrell [address] [address] 09/27/2024 16:25:10 09/27/2024 17:00:07 Body mass index 25-29 - overweight 041682777 Z68.25 Gynecologi c examination 99721426 Z01.419 Screening mammography 24 443943 Z12.31 Postmenopausal state 764 93904 Z78.0 Restless l egs syndrome 07384797 G25.81 [id number] GISSELLE Ferrell [address] [address] 03/26/2025 07:46:17 03/26/2025 08:38:57 Adult health examination 056041204 Z00.00 463466 Bradycardia 94099243 R00 .1 Hyperlipidemia 77541370 E78.5 Osteopenia 938891808 M85 .80 Restless l egs syndrome 54682532 G25.81 [id number] GISSELLE Ferrell [address] [address] 05/21/2025 14:15:50 05/21/2025 15:00:11 Nummular eczema 02190411 L30.0 311 If rash worsens - patient to call/messa ge and change to antifungal treatment [id number] GISSELLE Ferrell [address] [address] 09/03/2025 09:27:22 09/03/2025 10:17:35 Right upper quadrant pain 723243148 R10.11 [id number] Ransom dietTo ER if severe pain, dehydratio n, fever, etc Health Concerns Section Related Observation LastModified by Organization Detai ls LastModified Time None Recorded Concern Status LastModified by Organization Details LastModified Time None Recorded Advance Directives Directive Y: Payers Insurance Date Sequence Insurance Name Policy Number Policy Lopez Covered Member ID Lopez Member ID Guarantor Name 09/04/2025 1 [place] [employer] [facility] Tara Arredondo [id number] Tara Arredondo 09/03/2025 2 FOR LIFE ( - MEDICARE SUPPLEMENT) Tara Arredondo [id number] Tara Arredondo 08/07/2024 1 [place] Tara Arredondo [id number] Tara Arredondo 09/10/2024 2 FOR LIFE () Tara Arredondo [id number] Tara Arredondo 09/04/2025 1 [place] Tara Arredondo [id number] Tara Arredondo 09/04/2025 [place] [employer] [facility] Tara Arredondo [id number] Tara Arredondo Notes Date Note Type Note Provider Name and Address Organization Details Recorded Time 06/21/2024 text/html Patient presents to establish care. She recently moved here from [place]. SHe is up to date on pap, mammogram, and colonoscopy and we have requested those records.She has a history of hyperlipidemia. She started Crestor approximately 6 months ago. She states that it has lowered her cholesterol and she is tolerating it well.History of bradycardia. Currently asymptomatic and does not desire intervention.Histor y of RLS. Gets some relief with Requip. Also uses probiotics, magnesium.Takes a baby aspirin daily as well. GISSELLE Ferrell [address] [place], [address], [employer] 06/21/2024 12:29:30 09/27/2024 text/html Patient presents for followup.Had Lyme disease in August - took doxycyline.Needs a [employer] referral as she moved from [place].Not due for colonoscopy until 2026.Tried Ferritin for RLS and didn't notice much difference. Requip does help some. GISSELLE Ferrell [address] [place], [address], [employer] 09/27/2024 17:29:56 03/26/2025 text/html ROS as noted in the HPI Patient presents for check up.States overall she is doing well.Still struggling with RLS. Tried magnesium, potassium, ferrous sulfate. Tried Horizant and had a terrible reaction. Requip helps a little.Recently diagnosed with osteopenia and is taking Fosamax without side effects GISSELLE Ferrell [address] [place], [address], [employer]. 03/26/2025 13:35:52 05/21/2025 text/html ROS as noted in the HPI Lesions on upper arms for the past few days. Non painful, non itchy. HIstory of Lyme disease, treated in past. GISSELLE Ferrell [address] [place], [address], [employer] 05/21/2025 17:42:51 09/03/2025 text/html ROS as noted in the HPI Patient has had several episodes of nausea/vomiting/gisel rrhea for the past 3-4 months. Initially started after taking Omeprazole, so thought she was having a reaction to that. Then because it occurred mostly at night, thought it might be the red wine she ate at dinner. Most recently, she had nausea/vomiting and then diarrhea after eating pizza and ice cream. Had severe pain in her right upper quadrant. SHe does have a hiatal hernia, but this was much different. Concerned about her gallbladder. GISSELLE Ferrell [address] [place], [address], [employer] 09/03/2025 16:30:31 OBGyn Episode No OBEpisode recorded.
--- OUTSIDE RECORDS SUMMARY | 2025-09-11 08:58 | XMS_ITS | Continuity of Care Document ---
Author Organization [facility] Address [address] [place] [address] Assessment No assessment recorded. Plan of Treatment Reminders Order Date Submit Date Provider Last Modified By Organization Details Last Modified Time Details Appointments FOLLOW UP 2025 08:00A Anat Lund PA-C Not available Not available Not available FOLLOW UP 2025 08:30A Anat Lund PA-C Not available Not available Not available Lab None recorded. Referral None recorded. Procedures None recorded. Surgeries None recorded. Imaging US, abdomen, limited - RUQ [address] [place], [address], 09/09/2025 08:33:54 Medication Orders ondansetr on 8 mg disintegr ating tablet 2024 025 [facility][id number], [address] [place], [place], [id number], 09/03/2025 10:09:48 dicyclomi ne 20 mg tablet 2024 025 [facility] [employer] #[id number] [address] [place], [id number], 09/03/2025 10:10:08 Patient TargetsNo targets recorded. Patient InstructionsNo instructions recorded. Reason for Referral None Reported. Problems Name Problem SNOMED Code Status Onset Date Resolution Date Notes Provider Name and Address Organization Details Recorded Time Restless legs syndrome 74903308 Active 2023 GISSELLE Ferrell [address] [place] [address], [address], [employer] 4 11:12:57 Hyperlipidemia 70055843 Active 2023 GISSELLE Ferrell [address] [place] [address], [address], [place] [employer] 4 13:34:28 Bradycardia 05025482 Active 2023 GISSELLE Ferrell [address] [place] [address], [address], [place] [employer] 4 13:34:21 Osteopenia 078586999 Active 2024 GISSELLE Ferrell [address] [place] [address], [address], [place] [employer] 5 13:33:27 Chronic low back pain 633682520 Active 2024 GISSELLE Ferrell [address] [place] [address], [address], [employer] 5 08:45:35 Generalized osteoarthritis 209199590 Active 2024 GSISELLE Ferrell [address] [place] [address], [address], [employer] 5 08:45:53 Nummular eczema 43683222 Active 2024 GISSELLE Ferrell [address] [place] [address], [address], [employer] 5 14:56:59 Gastroesophage al reflux disease without esophagitis 765124889 Active 2024 GilchristGISSELLE Mas [address] [place] [address], [address], [employer] 5 10:11:13 Right upper quadrant pain 990129278 Active 2024 GISSELLE Ferrell [address] [place] [address], [address], [employer] 5 10:07:38 Problem Notes None recorded. Procedures Surgical History Date Name Laterality Status Provider Name and Address Organization Details Recorded Time 11/21/19 25 Most Recent Mammogram completed [email or web address] 03/12/2025 17:19:46 11/05/19 25 Date of Last Pap Smear completed [email or web address] 11/12/2024 16:36:18 06/29/20 22 Back Surgery completed [employer] 06/21/2024 10:48:24 11/12/18 64 Tonsillectomy completed [email or web address] 06/21/2024 10:48:24 Imaging Results None recorded. Procedure Notes None recorded. Medical Equipment None Reported. Allergies Allergen ID Allergen Name Allergen Category Reaction Reaction Severity Criticality Documentation Date Start Date Code Code System Note Provider Name and Address Organization Details Recorded Time 88116 Substance with sulfonami de structure and antibacte rial mechanism of action (substanc e) medicatio n rash moderate Not available 06/21/2024 09282 8003 SNOMED [employer]. 4 10:48:22 31850 shrimp allergeni c extract food nausea moderate Not available 06/21/20242022 45908 2 RxNorm [employer]. 4 10:48:22 43418 scallop allergeni c extract food nausea moderate Not available 06/21/2024 93412 6 RxNorm [employer]. 4 10:48:22 Medications Name Sig Start Date [...] Updated DateTime 5 176.53 cm 25.3 kg/m2 00525.6 4 g 98 [degF] 58 /min 97 % 128/76 mm[Hg] [facility] [employer] [facility]. 5 09:44:11 Social History Question Answer Notes LastModified by Organizat ion Details LastModified Time Tobacco Smoking Status Never Smoker Cece almaguer [facility] [employer] 06/21/2024 10:48:24 Do You Have An [...] Information not available 06/21/2024 What Type Of Sales Host Do You Use? None Information not available [...] Or The Highest Degree You Have Received? TI00082-3 Information not available 06/21/2024 Who Is Your [...] not available 06/21/2024 Where Do You Live? [facility] Information not available 06/21/2024 Do You Have A Medical Power Of Registered Nurse Behavioral Health? Yes Information not available 06/21/2024 What Was [...] anxious, or unable to sleep at night)? [id number] Information not available 09/03/2025 Do you have [...] last appointm ent. N Lung Disease N COPD N Depression N Dermatologic Disorders N Defects or Inherited [...] Disorder N Constipation N Mental Illness N Ovarian Cancer N Diabetes N Tuberculosis N Eczema N Diverticulitis N [...] Recorded Time Tdap 4 completed GISSELLE Ferrell [address] [place] [address], [address], [facility] [employer] 06/21/2024 12:00:30 Pneumococcal conjugate PCV15, polysaccharide VHE788 conjugate, adjuvant, PF 4 completed GISSELLE Ferrell [address] [place] [address], [address], [place] [facility] [employer] 06/21/2024 12:00:30 Influenza, high-dose, trivalent, PF 4 completed Cece Vice null, [facility] [employer] 09/27/2024 16:26:57 COVID-19, mRNA, LNP-S, PF, 50 mcg/0.5 mL 5 completed Not Available [facility] 09/03/2025 09:27:52 Influenza, MDCK, trivalent, PF 5 completed Not Available [facility] 09/03/2025 09:27:52 Past Encounters Encounter ID Performer Location Encounter Start Date Encounter Closed Date Diagnosis/Indication Diagnosis SNOMED-CT Code Diagnosis ICD10 Code Diagnosis IMO Codes Diagnosis Note [id number] GISSELLE Ferrell [facility] [address] [place] [address] 09/03/2025 09:27:22 09/03/2025 10:17:35 Right upper quadrant pain 576896880 R10.11 [id number] [place] [facility] if severe pain, dehydratio n, fever, etc Health Concerns Section Related Observation LastModified by Organization Detai ls LastModified Time None Recorded Concern Status LastModified by Organization Details LastModified Time None Recorded Payers Encounter Date Sequence Insurance Name Policy Number Policy Lopez Covered Member ID Lopez Member ID Guarantor Name 09/03/2025 1 [place]ACED BY [facility] [employer] [facility] Tara Arredondo [id number] Tara Arredondo 09/03/2025 2 FOR LIFE ( - MEDICARE SUPPLEMENT) Tara Arredondo [id number] Tara Arredondo Notes Date Note Type Note Provider Name and Address Organization Details Recorded Time 09/03/2025 text/html ROS as noted in the HPI Patient has had several episodes of nausea/vomiting/ diarrhea for the past 3-4 months. Initially started [...] different. Concerned about her gallbladder. GISSELLE Ferrell [address] [place] [address], [address], [facility] [employer] 09/03/2025 16:30:31 OBGyn Episode No OBEpisode recorded.
== END 2025-09-11 23:59 | disposition home or self-care (01) ==
LOC: RAD 08:55
PROVIDERS: PCP Physician Assistant; Visit Provider Physician Assistant
DX: R93.2 Abnormal findings on diagnostic imaging of liver and biliary tract (principal); R10.11 Right upper quadrant pain
CPT/HCPCS: 76705